=== PATIENT | female | born 1985 | race Hispanic/Latino ===

== ENCOUNTER 2019-01-20 14:20 | Inpatient (IN) | payer SELFPAY ==
[2019-01-20 15:46] LABS: #Eosinphils 0.1 thou/uL (0.0-0.7); #Lymphocytes 1.3 thou/uL (1.20-3.40); #Monocytes 0.4 thou/uL (0.11-0.59); #Neutrophils 5.9 thou/uL (1.40-6.50); %Basophils 0.5 % (0.0-1.0); %Eosinophils 1.9 % (0.0-10.0); %Lymphocytes 16.1 % (21.0-51.0); %Monocytes 5.2 % (0.0-10.0); %Neutrophils 76.3 % (42.0-75.0); Hemoglobin 7.6 g/dL (12.0-16.0); Mean Corpuscular HGB CONC 28.9 g/dL (32.0-36.0); Mean Corpuscular Hemoglobin 17.1 pg (27.0-31.0); Mean Corpuscular Volume 59.2 fL (78.0-98.0); Mean Platelet Volume 5.7 fL (7.4-10.4); Platelet Count 253 thou/uL (130-400); RBC Distribution Width 18.8 % (11.5-14.5); Red Blood Cell (RBC) Count 4.46 mill/uL (4.20-5.40); White Blood Cell (WBC) Count 7.8 thou/uL (4.8-10.8)
[2019-01-20 16:03] LABS: Elliptocytes SLIGHT = 2-5 cells (100X) (0-1/hpf); Hypochromia MODERATE=16-30 cells (100X) (0-5/hpf); MDiff Complete? YES; Microcytosis MODERATE=15-30 cells (100X) (0-5/hpf); Ovalocytes SLIGHT = 2-5 cells (100X) (0-1/hpf); Platelet Morphology Comment Appears Adequate; Polychromasia MODERATE = 3-4 cells (100X) (0-2/hpf); Reflex for Review?? YES; Schistocytes SLIGHT = 2-5 cells (100X) (0-1/hpf); Tear Drops SLIGHT = 2-5 cells (100X) (0-1/hpf)
[2019-01-20 16:04] LABS: ALT (SGPT) 14 U/L (8-55); AST (SGOT) 13 U/L (5-34); Albumin 3.9 g/dL (3.5-5.0); Alkaline Phosphatase 60 U/L (40-110); Anion Gap 13 mmol/L (10-20); BUN (Urea Nitrogen) 8 mg/dL (7.0-18.7); Bilirubin, Total 0.4 mg/dL (0.2-1.2); Calc. Creatinine Clearance 0 mL/min (70-130); Calcium 8.6 mg/dL (7.8-10.44); Carbon Dioxide 23 mmol/L (22-29); Chloride 106 mmol/L (98-107); Estimated GFR-MDRD Greater than 90; Globulin 3.6 g/dL (2.4-3.5); Glucose 99 mg/dL (70-105); Lipase 25 U/L (8-78); Potassium 3.9 mmol/L (3.5-5.1); Protein, Total 7.5 g/dL (6.0-8.3); Sodium 138 mmol/L (136-145)
[2019-01-20] MEDS ORDERED: Ondansetron ODT 4 MG TAB ONE (17:52)
[2019-01-20] MEDS ORDERED: Pantoprazole 40 MG VIAL ONE (19:58)
[2019-01-20] MEDS ORDERED: Lidocaine Viscous Sol 2% 15 ml UD Cup ONE (19:58)
[2019-01-20] MEDS ORDERED: Mag-Al 1200 mg/1200 mg/30 ML UDCUP ONE (19:58)
--- NOTE | 2019-01-20 20:45 | RAD ---
Exam: Chest one view HISTORY:Nausea. Vomiting. Chest pain. Comparison: None. FINDINGS: Cardiac silhouette:Upper normal cardiac silhouette. Aorta: Unremarkable Pulmonary vessels: Normal Costophrenic angles: Clear LUNGS: No masses or consolidation. Pneumothorax: None Osseous abnormalities: None IMPRESSION: No acute cardiopulmonary process.
[2019-01-20 23:16] VITALS: BMI 37.2
[2019-01-21] MEDS ORDERED: Bisacodyl 5 MG TAB PO PRN (00:18)
[2019-01-21] MEDS ORDERED: Bisacodyl 10 MG SUPP PR PRN (00:18)
[2019-01-21] MEDS ORDERED: Acetaminophen 325 MG TAB PO PRN (00:18)
[2019-01-21] MEDS ORDERED: HYDROcodone/Acetaminophen 5/325 mg Tablet PO PRN (00:18)
[2019-01-21] MEDS ORDERED: cloNIDine 0.1 MG TAB PO PRN ×2 (00:19→02:07)
[2019-01-21] MEDS ORDERED: hydrALAZINE 20 MG/ML VIAL SLOW IVP PRN ×2 (00:19→02:07)
[2019-01-21] MEDS ORDERED: Morphine 2 MG/ML SYRINGE SLOW IVP PRN ×2 (00:19→02:07)
[2019-01-21] MEDS ORDERED: Ondansetron PF 4 MG/2 ML Vial IVP PRN ×2 (00:19→02:07)
[2019-01-21] MEDS ORDERED: Promethazine HCl 12.5 MG in Sodium Chloride 0.9% 50 ML IVPB PRN ×2 (00:19→02:07)
--- NOTE | 2019-01-21 00:20 | PDOC.HHP ---
Hospitalist HPI - History of Present Illness Cough, hematemesis History of Present Illness: Patient is a 33 year old female with PMH anemia who presents to ED for evaluation of 1 day of hematemesis. Patient reports the she has had severe upper respiratory symptoms since Thursday including a severe cough. She has runny nose, chills but no recorded fevver, she also has had significant nause and vomiting as well as diarrhea over this time period. Today when vomiting she noticed that her vomit became bloody and continued to stay bloody for all day until she went to hospital. She denies any red or black stool, has mild abdominal pain, is on her period currently. Otherwise, denies chest pain and shortness of breath. She denies history of liver problems, drinks alcohol but very rarely (last drink 2 months ago) and denies drug use or other chronic issues. Hospitalist ROS - Review of Systems Constitutional: reports: chills, sweats, weakness, malaise. denies: fever Eyes: denies: vision change, redness ENT: reports: nose discharge, nose congestion. denies: mouth swelling, throat swelling Respiratory: reports: cough, hemoptysis. denies: shortness of breath Cardiovascular: denies: chest pain, palpitations Gastrointestinal: reports: nausea, vomiting, diarrhea, other (hematemesis). denies: abdominal pain Genitourinary: denies: dysuria, frequency Musculoskeletal: denies: neck pain, shoulder pain, arm pain Skin: denies: rash, lesions Neurological: denies: weakness, numbness, incoordination All other systems reviewed; all pertinent +/- noted in HPI/Subj Hospitalist History - Past Medical History Other Medical History: anemia - Past Surgical History Other Surgical History: C section x 3 - Family History Other Family History: reviewed and noncontributory - Social History Smoking Status: Never smoker Alcohol: reports: Rare (last drink 2 months ago) Drugs: reports: none - Exam General Appearance: NAD, awake alert Eye: PERRL, anicteric sclera ENT: normocephalic atraumatic, moist mucosa Neck: supple, symmetric, no JVD Heart: RRR, no murmur, no gallops, no rubs Respiratory: CTAB, no wheezes, no rales, no ronchi Gastrointestinal: soft Gastrointestinal - other findings: mild diffuse TTP Extremities: no cyanosis, no clubbing, no edema Skin: no lesions, no rashes Neurological: cranial nerve grossly intact, normal sensation to touch, no weakness, no focal deficits Musculoskeletal: normal tone, normal strength Psychiatric: normal affect, normal behavior Hospitalist Results - Labs Result Diagrams: 01/20/19 15:33 01/20/19 15:33 Lab results: WBC 7.8 thou/uL (4.8-10.8) 01/20/19 15:33 Hgb 7.6 g/dL (12.0-16.0) L 01/20/19 15:33 Hct 26.4 % (36.0-47.0) L 01/20/19 15:33 MCV 59.2 fL (78.0-98.0) L 01/20/19 15:33 Plt Count 253 thou/uL (130-400) 01/20/19 15:33 Neutrophils % 76.3 % (42.0-75.0) H 01/20/19 15:33 Sodium 138 mmol/L (136-145) 01/20/19 15:33 Potassium 3.9 mmol/L (3.5-5.1) 01/20/19 15:33 Chloride 106 mmol/L (98-107) 01/20/19 15:33 Carbon Dioxide 23 mmol/L (22-29) 01/20/19 15:33 BUN 8 mg/dL (7.0-18.7) 01/20/19 15:33 Creatinine 0.66 mg/dL (0.6-1.1) 01/20/19 15:33 Glucose 99 mg/dL (70-105) 01/20/19 15:33 Calcium 8.6 mg/dL (7.8-10.44) 01/20/19 15:33 Total Bilirubin 0.4 mg/dL (0.2-1.2) 01/20/19 15:33 AST 13 U/L (5-34) 01/20/19 15:33 ALT 14 U/L (8-55) 01/20/19 15:33 Alkaline Phosphatase 60 U/L (40-110) 01/20/19 15:33 Troponin I Less than 0.010 ng/mL (< 0.028) 01/20/19 15:33 Serum Total Protein 7.5 g/dL (6.0-8.3) 01/20/19 15:33 Albumin 3.9 g/dL (3.5-5.0) 01/20/19 15:33 Lipase 25 U/L (8-78) 01/20/19 15:33 Hospitalist H&P A/P - Plan Plan: Patient is a 33 year old female with PMH anemia who presents to ED for evaluation of 1 day of hematemesis after URI symptoms # hematemesis - after several days of URI symptoms and vomiting/diarrhea, suspect a URI/GI viral illness causing cristian rdz tear, but will request GI eval for second opinion - admit to floor - GI consult - trend CBC, transfuse for hgb < 7 - BID PPI - advised to stop taking aleve/ibuprofin which she has been using a lot this week, and instead to use tylenol att home. - follow up serum test ordered w/ am labs # URI symptoms - will start IV fluids, symptomatic treatments and monitor for improvement, watch for signs of worsening such as fever or hypoxia # anemia - on period and also w/ hematemesis and some reported chronic anemia, presume due to iron deficiency, can supplement with Po iron once acute bleeding resolved
[2019-01-21] MEDS ORDERED: Benzonatate 100 MG CAP PO PRN (02:08)
[2019-01-21] MEDS ORDERED: HYDROcodone/Chlorphen Polis 5 ML UDCUP PO PRN (02:08)
[2019-01-21] MEDS: Sodium Chloride 0.9% 1,000 ML IV SCH ×3 (02:54→23:31)
[2019-01-21 06:08] LABS: BHCG - Serum Negative (NEGATIVE); Pregs Control Background? CLEAR/WHITE (CLR/WHITE); Pregs Control Bar Appear? YES (CONTROL BAR)
[2019-01-21 06:23] LABS: Anion Gap 6 mmol/L (10-20); BUN (Urea Nitrogen) 9 mg/dL (7.0-18.7); Calc. Creatinine Clearance 144 mL/min (70-130); Calcium 8.2 mg/dL (7.8-10.44); Carbon Dioxide 26 mmol/L (22-29); Chloride 108 mmol/L (98-107); Estimated GFR-MDRD Greater than 90; Glucose 99 mg/dL (70-105); Potassium 3.3 mmol/L (3.5-5.1); Sodium 137 mmol/L (136-145)
[2019-01-21 06:36] LABS: #Eosinphils 0.2 thou/uL (0.0-0.7); #Lymphocytes 1.9 thou/uL (1.20-3.40); #Monocytes 0.5 thou/uL (0.11-0.59); #Neutrophils 3.9 thou/uL (1.40-6.50); %Basophils 0.6 % (0.0-1.0); %Eosinophils 3.2 % (0.0-10.0); %Monocytes 7.8 % (0.0-10.0); %Neutrophils 59.4 % (42.0-75.0); Anisocytosis SLIGHT = 6-15 cells (100X) (0-5/hpf); Hemoglobin 6.7 g/dL (12.0-16.0); Hypochromia MODERATE=16-30 cells (100X) (0-5/hpf); MDiff Complete? YES; Mean Corpuscular HGB CONC 29.4 g/dL (32.0-36.0); Mean Corpuscular Hemoglobin 17.3 pg (27.0-31.0); Mean Corpuscular Volume 58.8 fL (78.0-98.0); Mean Platelet Volume 5.9 fL (7.4-10.4); Microcytosis MODERATE=15-30 cells (100X) (0-5/hpf); Platelet Count 222 thou/uL (130-400); RBC Distribution Width 18.5 % (11.5-14.5); Red Blood Cell (RBC) Count 3.88 mill/uL (4.20-5.40); White Blood Cell (WBC) Count 6.6 thou/uL (4.8-10.8)
[2019-01-21] MEDS ORDERED: Sodium Phosphate 15 MMOL in Sodium Chloride 0.9% 250 ML 250 ML IVPB SCH (07:00)
--- NOTE | 2019-01-21 11:25 | PRG ---
DATE OF SERVICE: 01/21/2019 SUBJECTIVE: The patient is seen and examined at the bedside. She seems to be doing better. She still has quite a bit of cough, but no more vomiting. OBJECTIVE: VITAL SIGNS: Blood pressure is 95/60, pulse is 75, temperature 98.5, respiratory rate 16, O2 saturation is 99% on room air. HEENT: Head is atraumatic and normocephalic. Sclerae are nonicteric. Conjunctivae pale. Oral mucosa is palish. NECK: Supple. LUNGS: Clear. HEART: S1 and S2 normal. ABDOMEN: Soft and tender in mid epigastric area. No guarding. No masses. EXTREMITIES: No clubbing, cyanosis, or edema. NEUROLOGIC: Intact. LABORATORY DATA: White count of 6.6, hemoglobin 6.7, hematocrit 22.8, platelet count 222,000. Sodium of 137, potassium 3.3, chloride 108, CO2 of 26, BUN 9, creatinine 0.67, glucose 99, calcium 8.2. Serum test negative. IMPRESSION: Severe anemia, probably multifactorial in nature, secondary to hypermenorrhea. The patient has bleeding for 2 weeks every month for quite some time. Also, she started having some hematemesis after she coughs. PLAN: Transfusion with 1 unit of packed red blood cells. Discontinue sodium phosphate and get TAPE CUTTER consult for her hypermenorrhea. We are going to get transvaginal ultrasound too, and we will continue PPI, and GI consult is pending. Job ID: [id number]
--- NOTE | 2019-01-21 11:28 | CON ---
DATE OF CONSULTATION: 01/21/2019 CHIEF COMPLAINT: Vomited blood. HISTORY OF PRESENT ILLNESS: Ms. Chun is a 33-year-old woman, who started with upper respiratory symptoms with a cough about a week ago. On Thursday, 4 days ago, she started in with nausea and vomiting. She has vomited once or twice a day for the last few days. Yesterday, she vomited red blood, mixed with yellow bilious vomitus. She came onto the emergency room for further care and she was found to have severe microcytic anemia. She has had no abdominal pain associated with this. No diarrhea. She has normal soft brown stools once daily. She does have heavy menstrual periods, which go on for 10 days at a time and she soaks 5 or 6 pads in a day. She has not been taking any iron supplementation. PAST MEDICAL HISTORY: Anemia. PAST SURGICAL HISTORY: x3. FAMILY HISTORY: Negative for GI malignancy. SOCIAL HISTORY: No tobacco or drugs. She drinks Adenike around once every 2 months. ALLERGIES: NO KNOWN DRUG ALLERGIES. MEDICATIONS: Prior to admission, none. She did take ibuprofen 2 or 3 tablets every 4 hours for the last 3 or 4 days prior to admission, but has not been taking NSAIDs chronically before that. REVIEW OF SYSTEMS: Negative x10 systems reviewed except as stated in the history of present illness. PHYSICAL EXAMINATION: VITAL SIGNS: Temperature 98.5, pulse 75, blood pressure 95/60. GENERAL: She is in no acute distress. Alert and oriented x3. HEENT: Eyes have no scleral icterus. Oropharynx is clear without lesions. No cervical or supraclavicular lymphadenopathy. LUNGS: Clear to auscultation bilaterally. HEART: Regular rate and rhythm without murmur. ABDOMEN: Soft, nontender, and nondistended. Bowel sounds are present. EXTREMITIES: No lower extremity edema. NEUROLOGIC: Cranial nerves are grossly intact. LABORATORY DATA: Creatinine is 0.66. Bilirubin 0.4, AST 13, ALT 14, alkaline phosphatase 60, albumin 3.9, and lipase 25. test is negative. White blood cell count 6.6, hemoglobin is 7.6 on presentation yesterday and 6.7 this morning, MCV 58.8, and platelets 222. IMPRESSION: 1. Hematemesis. This is most consistent with a Alejandrina-Pompa tear. 2. Severe microcytic anemia. This is most likely secondary to her heavy menstrual periods. 3. Upper respiratory infection followed by nausea and vomiting, which is likely a viral illness. This seems to be generally improving. RECOMMENDATIONS: 1. Proton pump inhibitor. 2. We will plan to proceed with upper endoscopy in light of the hematemesis with severe anemia; however, again I think the anemia is secondary to menstrual blood loss. 3. Iron supplementation. 4. She should follow up with Gynecology regarding the heavy menstrual periods. Job ID: [id number]
--- NOTE | 2019-01-21 12:33 | ULT ---
PELVIC ULTRASOUND: HISTORY: Heavy bleeding. TECHNIQUE: Real-time imaging of the pelvis was obtained both transabdominally as well as with an endovaginal pro be. The endovaginal probe exam was limited due to the patient's pain during the procedure. FINDINGS: The uterus measures 4.4 x 6.1 x 11.6 cm in size. There appears to be fluid within the endometrial cav ity, in the fundus region. There is fullness in the lower uterine segment on transabdominal images an d a lower uterine segment mass, measuring 3.5 cm in size, is noted. This is apparently near the level of the cervix. It is somewhat difficult to assess. The right and left adnexa appear unremarkable. On Doppler evaluation with spectral analysis, normal flow is shown to the adnexal regions. IMPRESSION: 1. Lower uterine segment mass, measuring approximately 3.5 x 4 cm in size. This is most likely a lowe r uterine segment fibroid. I cannot exclude this as an endometrial mass although it is probably just pressing on the endometrium. The other possibility is some type of cervical mass. On imaging basis, M RI may be helpful in further assessment. 2. Incidental note is made of a small nabothian cyst also in this region. POS: TPC
[2019-01-21] MEDS ORDERED: Midazolam HCl 2 mg/2 ml Vial ONE (12:45)
[2019-01-21] MEDS: Ferrous Gluconate 324 MG TAB PO SCH (16:41)
--- NOTE | 2019-01-21 19:41 | OP ---
DATE OF PROCEDURE: 01/21/2019 PROCEDURE: Esophagogastroduodenoscopy with biopsy. PREOPERATIVE DIAGNOSIS: Hematemesis and severe anemia. DESCRIPTION OF PROCEDURE: Informed consent was obtained from the patient. She was sedated with total intravenous anesthesia. A bite block was placed and endoscope was advanced easily to the second portion of the duodenum and retroflexion was performed in the stomach. The patient obstructs within the endoscope in her oropharynx and likely has some underlying sleep apnea. The esophagus was normal. The GE junction was normal. The stomach was normal on retroflexed views. There were multiple shallow ulcerations in the antrum measuring 5 to 10 mm. None of these had stigmata of recent bleeding. The pylorus and first and second portions of the duodenum were normal. Biopsies were obtained from the duodenum to rule out celiac disease. Biopsies were obtained from the antrum to rule out Helicobacter pylori. Air was suctioned from the stomach. The procedure was completed. IMPRESSION: 1. Multiple shallow antrum ulcers, biopsied to rule out Helicobacter pylori. 2. Otherwise normal EGD. Duodenal biopsies were taken to rule out celiac disease. 3. The patient does obstruct her airway with placement of the endoscope and the oropharynx. I would suspect she is likely high risk for obstructive sleep apnea. 4. I still think her anemia is primarily secondary to menstrual blood loss. There was no stigmata of recent bleeding associated with the gastric ulcers. The hematemesis episode is more consistent with a Alejandrina-Pompa tear that could have healed. However, it is possible that she did have some oozing previously from these shallow antral ulcers. RECOMMENDATIONS: 1. Proton pump inhibitor daily. 2. Await histopathology. If there is inadequate tissue from the gastric biopsies to rule out Helicobacter pylori, then, a stool antigen can be checked. 3. Iron supplementation. 4. If patient requires endoscopic procedures in the future, then I would perform these in the hospital setting in light of the potential for obstructive sleep apnea. 5. Follow up with Gynecology for menorrhagia. 6. I will sign off for now. Please call if GI can help. 7. Avoid NSAIDs. Job ID: [id number]
[2019-01-21] MEDS: guaiFENesin ER 600 MG TAB PO SCH (20:22)
--- NOTE | 2019-01-21 21:58 | CON ---
DATE OF CONSULTATION: 01/21/2019 REQUESTING PHYSICIAN: Sachi hospitalist. REASON FOR CONSULTATION: History of heavy vaginal bleeding, anemia. HISTORY OF PRESENT ILLNESS: Ms. Chun is a 33-year-old G3, P3, who presents complaining of vomiting blood prior to her admission. Of note is the fact that over the last year, she has had bleeding every month, lasting almost 2 weeks. She states that her last Pap smear was at [facility] approximately 2 years ago and that was reportedly normal. PAST OBSTETRICAL HISTORY: Includes 3 previous sections. PAST MEDICAL HISTORY: None. PAST SURGICAL HISTORY: Includes 3 previous sections and a tubal ligation. CURRENT MEDICATIONS: None. ALLERGIES: NO KNOWN ALLERGIES. SOCIAL HISTORY: She drinks occasionally. She does not smoke or use drugs. FAMILY HISTORY: Unremarkable for pelvic malignancies. REVIEW OF SYSTEMS: Denies nausea, vomiting, fever, or chills. PHYSICAL EXAMINATION: VITAL SIGNS: Most recent vital signs show blood pressure 110/73 with pulse of 79, temperature 98.5, and 100% O2 saturation on room air. GENERAL: She is pleasant and in no acute distress. ABDOMEN: Soft and nontender. : On pelvic examination, there is no blood in the vault. The speculum exam is very difficult as the patient has problems tolerating this. It does appear at the apex of the vagina that she has a fibroid that is seen through the cervix. The edges of the cervix appear normal, but examination is limited. On bimanual examination, there appears to be a vaginal septum and duplicated tract on the other side. Pt. has difficulty tolerating both the speculum and the bimanual exam and findings are limited. LABORATORY DATA: Hemoglobin on admission 7.6, this is repeated today. Her white count 6.6, hemoglobin 6.7, hematocrit 22.8, platelet count 222,000. Pelvic ultrasound returns showing a lower segment mass 3.5 x 4 cm in size, also consistent with a lower uterine segment fibroid. A small nabothian cyst is seen. Her uterus measures 11 cm in axial length. ASSESSMENT: 1. Menorrhagia with secondary anemia. 2. Suspected cervical fibroid, not currently bleeding. 3. 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 PLAN: At this time, I agree with red blood cell transfusion. Once she has an acceptable hemoglobin, I would recommend that she be evaluated as an outpatient with a Pap smear with a more complete exam and then potentially proceeding with either removal of the fibroid or an abdominal hysterectomy. Job ID: [id number] MARILEE
[2019-01-22] MEDS: Sodium Chloride 0.9% 1,000 ML IV SCH ×2 (04:00→15:49)
[2019-01-22 07:24] LABS: Anion Gap 11 mmol/L (10-20); BUN (Urea Nitrogen) 4 mg/dL (7.0-18.7); Calc. Creatinine Clearance 154 mL/min (70-130); Carbon Dioxide 20 mmol/L (22-29); Chloride 112 mmol/L (98-107); Estimated GFR-MDRD Greater than 90; Glucose 91 mg/dL (70-105); Sodium 139 mmol/L (136-145)
[2019-01-22 08:25] LABS: #Eosinphils 0.2 thou/uL (0.0-0.7); #Lymphocytes 1.9 thou/uL (1.20-3.40); #Monocytes 0.4 thou/uL (0.11-0.59); #Neutrophils 3.4 thou/uL (1.40-6.50); %Basophils 0.5 % (0.0-1.0); %Eosinophils 3.1 % (0.0-10.0); %Lymphocytes 32.3 % (21.0-51.0); %Monocytes 5.9 % (0.0-10.0); %Neutrophils 58.2 % (42.0-75.0); Anisocytosis SLIGHT = 6-15 cells (100X) (0-5/hpf); Hemoglobin 8.1 g/dL (12.0-16.0); Hypochromia MODERATE=16-30 cells (100X) (0-5/hpf); MDiff Complete? YES; Mean Corpuscular HGB CONC 30.8 g/dL (32.0-36.0); Mean Corpuscular Hemoglobin 19.6 pg (27.0-31.0); Mean Corpuscular Volume 63.4 fL (78.0-98.0); Mean Platelet Volume 5.8 fL (7.4-10.4); Microcytosis MODERATE=15-30 cells (100X) (0-5/hpf); Ovalocytes SLIGHT = 2-5 cells (100X) (0-1/hpf); Platelet Count 231 thou/uL (130-400); Poikilocytosis SLIGHT = 6-15 cells (100X) (0-5/hpf); RBC Distribution Width 25.1 % (11.5-14.5); Red Blood Cell (RBC) Count 4.15 mill/uL (4.20-5.40); White Blood Cell (WBC) Count 5.9 thou/uL (4.8-10.8)
[2019-01-22] MEDS: Ferrous Gluconate 324 MG TAB PO SCH ×3 (08:27→16:35)
[2019-01-22] MEDS: guaiFENesin ER 600 MG TAB PO SCH ×2 (08:27→20:08)
[2019-01-22] MEDS ORDERED: Sodium Chloride 0.9% 250 ML IV SCH (12:00)
--- NOTE | 2019-01-22 14:45 | PRG ---
DATE OF SERVICE: 01/22/2019 SUBJECTIVE: The patient is seen and examined at the bedside. She is doing significantly better. Her cough has improved. She had 1 unit of blood transfused. Her hemoglobin is up to 8.1. She was seen by Dr. Shields for REGISTERED DIET TECHNICIAN evaluation and she had her pelvic ultrasound done. OBJECTIVE: VITAL SIGNS: Blood pressure is 90/60, pulse is 68, temperature is 98.5, respirations 16, O2 saturation is 98% on room air. HEENT: Her head is atraumatic and normocephalic. Eyes are PERRLA. Sclerae are nonicteric. Conjunctivae are palish. Oral mucosa is moist. NECK: Supple. LUNGS: Clear. HEART: S1 and S2, normal. ABDOMEN: Soft, nontender. Bowel sounds are present. No organomegaly. EXTREMITIES: No clubbing, cyanosis, or edema. NEUROLOGIC: She is alert and oriented x4. There is no any motor or sensory deficit. Cranial nerves are intact. LABORATORY DATA: Showed white count of 5.9, hemoglobin 8.1, hematocrit 26.3, platelet count is 231,000. Chemistry showed sodium of 139, potassium 4.0, chloride 112, CO2 of 20, BUN 4, creatinine 0.63, glucose 91, calcium 8.0. Ultrasound, transvaginal of the pelvis showed; 1. Lower uterine segment mass measuring approximately 3.5 x 4 cm in size, most likely it is the lower uterine segment fibroid, but MRI was recommended. 2. Incidental note of small nabothian cyst also in this region. IMPRESSION: 1. Severe anemia, probably multifactorial. She was found to have some gastric ulcers, which were not bleeding on the EGD, but also she has hypermenorrhea with periods lasting up to 2 weeks every month for quite some time. 2. Hypermenorrhea. She had ultrasound of the pelvis done, which showed possible fibroids, recommendation by radiologist was to do MRI for further evaluation of the mass, and she is going to have MRI done today. She was seen by Dr. Shields for REGISTERED DIET TECHNICIAN evaluation. He recommends her to follow up for Pap smear and further evaluation and possible hysterectomy if this is a fibroid in her uterus. 3. Multiple gastric ulcers in the antrum, biopsied to rule out Helicobacter pylori. Otherwise normal EGD. Also, duodenal biopsies were taken to rule out celiac disease. Of the note, there was finding that during the endoscopy, her airways were getting obstructed with placement and followup for any EGDs recommended in the hospital since she might have obstructive sleep apnea based on this finding. We are going to keep her on proton pump inhibitor, Protonix 40 mg once a day for those ulcers, and she should be able to go home when the diagnostic workup is completed. Job ID: [id number]
--- NOTE | 2019-01-22 15:46 | MRI ---
EXAM: MRI of the pelvis without and with contrast HISTORY: Uterine didelphys COMPARISON: Pelvic ultrasound 01/21/2019 TECHNIQUE: Multiplanar multisequence MR images were obtained of the pelvis without and with IV contra st. FINDINGS: Cervix: Nabothian cysts are seen in the cervix. There is an intravaginal mass measuring 4.1 cm in siz e. This appears eccentric in relation to the internal os of the cervix. It has signal characteristics suggesting it is a fibroid. Uterus: The uterine fundus is convex. The patient has a septate uterus with a septation extending yudy n to the lower uterine segment. A 2.4 cm mass in the left aspect of the uterus likely represents a fibroid. There is a 2.8 cm cyst along the anterior aspect of the uterus. Junctional zone: Normal in thickness A small amount of free fluid is seen in the pelvis. Right ovary: Normal in appearance without visualized mass Left ovary: Normal in appearance without visualized mass Pelvic lymph nodes: No pelvic adenopathy Osseous structures: No marrow signal abnormality IMPRESSION: 1. Uterine fibroids. There is an intravaginal mass which may represent an exophytic fibroid emanating from the lower uterine segment into the vagina. 2. Septate uterus 3. Nabothian cysts 4. Cyst seen along the anterior uterine wall appears separate from the follicles in the ovaries.
--- NOTE | 2019-01-22 15:48 | MRI ---
EXAM: MRI of the abdomen without and with contrast COMPARISON: None HISTORY: Uterine anomaly TECHNIQUE: Multiplanar multi sequence MR images were taken of the abdomen without and with IV contras t. [An MRCP was performed.] FINDINGS: Liver: No focal liver lesions or intrahepatic ductal dilatation. Normal signal without dropout on out of phase images. No abnormal enhancement. Gallbladder: No filling defects or gallbladder wall thickening. Common bile duct: Normal caliber without filling defects Adrenal glands: Unremarkable. Kidneys: No hydronephrosis or focal renal lesions. No abnormal areas of enhancement. The kidneys are normal in appearance. Spleen: Unremarkable. Pancreas: Unremarkable. No abnormal enhancement. Retroperitoneum: No enlarged lymph nodes Bones: No marrow signal abnormality. IMPRESSION: No significant intra-abdominal abnormality.
[2019-01-23] MEDS: Sodium Chloride 0.9% 1,000 ML IV SCH ×3 (03:17→21:56)
[2019-01-23 06:00] LABS: Anion Gap 10 mmol/L (10-20); BUN (Urea Nitrogen) Less than 4 mg/dL (7.0-18.7); Calc. Creatinine Clearance 140 mL/min (70-130); Calcium 8.3 mg/dL (7.8-10.44); Carbon Dioxide 23 mmol/L (22-29); Chloride 110 mmol/L (98-107); Estimated GFR-MDRD Greater than 90; Glucose 84 mg/dL (70-105); Potassium 3.2 mmol/L (3.5-5.1); Sodium 140 mmol/L (136-145)
[2019-01-23 06:31] LABS: #Basophils 0.1 thou/uL (0.0-0.2); #Eosinphils 0.2 thou/uL (0.0-0.7); #Lymphocytes 2.4 thou/uL (1.20-3.40); #Monocytes 0.4 thou/uL (0.11-0.59); #Neutrophils 3.9 thou/uL (1.40-6.50); %Basophils 0.9 % (0.0-1.0); %Eosinophils 2.9 % (0.0-10.0); %Lymphocytes 33.8 % (21.0-51.0); %Monocytes 6.4 % (0.0-10.0); Anisocytosis SLIGHT = 6-15 cells (100X) (0-5/hpf); Hemoglobin 8.6 g/dL (12.0-16.0); Hypochromia MODERATE=16-30 cells (100X) (0-5/hpf); MDiff Complete? YES; Mean Corpuscular HGB CONC 29.8 g/dL (32.0-36.0); Mean Corpuscular Hemoglobin 19.2 pg (27.0-31.0); Mean Corpuscular Volume 64.3 fL (78.0-98.0); Mean Platelet Volume 5.9 fL (7.4-10.4); Microcytosis MODERATE=15-30 cells (100X) (0-5/hpf); Platelet Count 239 thou/uL (130-400); Platelet Morphology Comment Appears Adequate; RBC Distribution Width 24.9 % (11.5-14.5); Red Blood Cell (RBC) Count 4.48 mill/uL (4.20-5.40)
[2019-01-23] MEDS ORDERED: Potassium Chloride 20 MEQ TAB PO SCH (07:15)
--- NOTE | 2019-01-23 07:24 | PDOC.FM ---
- Subjective Subjective: I saw this patient with the Laborist. This note is for Laborist progress note. Pt reports doing well this morning. Reports bleeding almost stopped this am. Reports a few spots. Denies any acute events overnight. Denies any lightheadness , dizziness, headaches, vision changes. Denies any chest pain or SOB. Denies any n/v/d/c. No other concerns at this time. - Objective MAR Reviewed: Yes Vital Signs & Weight: Vital Signs (12 hours) Temp Pulse Resp BP Pulse Ox 01/22/19 20:04 98.7 F 72 18 97/68 99 Weight Weight 78.018 kg I&O: 01/22/19 01/23/19 01/24/19 06:59 06:59 06:59 Intake Total 4050 4900 Balance 4050 4900 Result Diagrams: 01/23/19 05:13 01/23/19 05:13 Radiology Reviewed by me: Yes Radiology: 01/22 Abdomen/Pelvis MRI: No acute abdomen pathology. Uterine fibroids. there is an intravaginal mass which may representan exophytic fibroid emanating from the lower uterine segment into the vagina. Septate uterus. Nabothian Cysts. Cyst seen along ant uterine wall appears seperate from follicles in the ovaries Phys Exam - Physical Examination Constitutional: NAD HEENT: PERRLA, moist MMs, sclera anicteric, oral pharynx no lesions Neck: no nodes, supple, full ROM Respiratory: no wheezing, no rales, no rhonchi Cardiovascular: RRR, no significant murmur, no rub Gastrointestinal: soft, non-tender, no distention, positive bowel sounds Musculoskeletal: no edema, pulses present Neurological: non-focal, normal sensation, moves all 4 limbs Lymphatic: no nodes Psychiatric: normal affect, A&O x 3 Skin: no rash, normal turgor, cap refill <2 seconds Dx/Plan (1) Symptomatic anemia Code(s): D64.9 - ANEMIA, UNSPECIFIED Status: Acute (2) Abnormal uterine bleeding (AUB) Code(s): N93.9 - ABNORMAL UTERINE AND VAGINAL BLEEDING, UNSPECIFIED Status: Acute (3) Uterine fibroid Code(s): D25.9 - LEIOMYOMA OF UTERUS, UNSPECIFIED Status: Acute (4) Septate uterus Code(s): Q51.20 - OTHER DOUBLING OF UTERUS, UNSPECIFIED Status: Acute - Plan Plan: Symptomatic Anemia -S/p transfusion 1u PRBC. -Hgb 8.1->8.6 this am. VSS. Pt asx at this time. -Vaginal bleeding almost stopped at this time. AUB/Uterine Fibroid -Pt has large fibroid extending into cervix. Likely source of bleed. -Plan will be for surgery tmrw for vaginal Myomectomy to remove as bleeding likely won't resolve without removal Septate Uterus -Abdomen evaluated for any underlying related renal abnormalities. No other abnormalities noted. This note was documented for Loan Processing Supervisor consult progress note with Laborist group. Dispo: At this time will continue to monitor patient. Will plan on Vaginal Myomectomy under General for tommorrow to remove Uterine fibroid which is likely source of bleeding. NPO at midnight.
[2019-01-23] MEDS: guaiFENesin ER 600 MG TAB PO SCH ×2 (08:09→21:46)
[2019-01-23] MEDS: Ferrous Gluconate 324 MG TAB PO SCH ×3 (08:13→17:34)
--- NOTE | 2019-01-23 11:20 | PRG ---
DATE OF SERVICE: 01/23/2019 SUBJECTIVE: The patient is seen and examined at the bedside. She is scheduled to have hysterectomy tomorrow by [facility]. OBJECTIVE: VITAL SIGNS: Blood pressure is 111/70, pulse is 59, respiratory rate is 17, O2 saturation is 97% on room air, and temperature is 98.4. HEENT: Her head is normocephalic. Eyes are PERRLA. Sclerae are nonicteric. Oral mucosa is moist. LUNGS: Clear. HEART: S1 and S2, normal. ABDOMEN: Soft, obese, nontender. EXTREMITIES: No clubbing, cyanosis, or edema. NEUROLOGICAL: She is alert and oriented x4. There are no any motor or sensory deficits. LABORATORY DATA: Labs showed white count of 7.0, hemoglobin of 8.6, hematocrit 28.8, and platelet count is 239,000. Chemistry showed a sodium of 140, potassium 3.2, chloride 110, CO2 of 23, BUN less than 4, and creatinine 0.69. Her calcium is 8.3, and glucose is 84. MRI of the pelvis showed 1. Uterine fibroids. 2. Septate uterus. 3. Nabothian cysts. 4. Cyst seen along the anterior uterine wall, which appears separate from the follicles in the ovaries. MRI of the abdomen did not show any abnormalities. IMPRESSION: 1. Severe anemia, probably multifactorial with history of hypermenorrhea lasting up to two weeks. It looks like secondary to fibroid of the uterus. The patient is scheduled for a transvaginal myomectomy by [facility] tomorrow morning, and her EGD showed some stomach ulcers, but there was no any stigmata of bleeding. She is on Protonix at this point. Her anemia is improving daily with hemoglobin of 8.6 today. 2. Hypermenorrhea, as mentioned above, for myomectomy tomorrow secondary to fibroid of the uterus. Job ID: [id number]
--- NOTE | 2019-01-24 06:17 | PDOC.EVN ---
Event Note - Event Note Event Note: Discussed procedure with pt. last PM. VSS AF No significant bleeding. Plan: For EUA and vaginal myomectomy today. Consent on chart.
[2019-01-24] MEDS: Ferrous Gluconate 324 MG TAB PO SCH ×2 (07:26→13:27)
[2019-01-24] MEDS: guaiFENesin ER 600 MG TAB PO SCH (07:27)
[2019-01-24] MEDS ORDERED: Fentanyl 100 MCG/2 ML VIAL ONE (10:05)
[2019-01-24] MEDS ORDERED: PROPOFOL 200 MG/20 ML VIAL ONE (10:13)
[2019-01-24] MEDS ORDERED: Lidocaine 1% PF 5 ML VIAL ONE (10:13)
[2019-01-24] MEDS ORDERED: Rocuronium Bromide 10 MG/ML (10ML VIAL) ONE (10:13)
[2019-01-24] MEDS ORDERED: Ondansetron PF 4 MG/2 ML Vial ONE (10:13)
[2019-01-24] MEDS ORDERED: Dexamethasone 20 MG/5 ML VIAL ONE (10:13)
[2019-01-24] MEDS: Sodium Chloride 0.9% 1,000 ML IV SCH (11:32)
[2019-01-24] MEDS ORDERED: Ondansetron HCl/PF 4 MG/2 ML Vial IVP PRN (12:18)
[2019-01-24] MEDS ORDERED: Promethazine HCl 25 MG/ML VIAL SLOW IVP PRN (12:18)
[2019-01-24] MEDS ORDERED: Promethazine HCl 25 MG/ML VIAL IM PRN (12:18)
[2019-01-24 13:07] VITALS: TEMP 98.7
[2019-01-24 16:47] VITALS: BP 104/67
--- NOTE | 2019-01-24 22:10 | OP ---
DATE OF PROCEDURE: 01/24/2019 PREOPERATIVE DIAGNOSES: 1. Pedunculated fibroid. 2. Vaginal bleeding. 3. Anemia. POSTOPERATIVE DIAGNOSES: 1. Pedunculated fibroid. 2. Vaginal bleeding. 3. Anemia. 4. Longitudinal vaginal septum. PROCEDURES PERFORMED: Exam under anesthesia with excision of cervical fibroid 4.5 cm. ANESTHESIA: General. COMPLICATIONS: None. COUNTS: Correct. CONDITION: Stable to recovery room. SPECIMENS: Excised fibroid to Pathology. DESCRIPTION OF PROCEDURE: Ms. Ousmane Chun was taken to the operating room after obtaining written informed consent and discussing the procedure's goals. The patient expressed understanding and desired to proceed. She was placed under general anesthesia without difficulty and placed in dorsal lithotomy position in Solomon stirrups. She was prepared and draped in normal sterile fashion. Attention was placed vaginally with the aid of right angle Rocco retractors and [place] to identify the upper regions of the vagina and cervix, where a 4.5 cm pedunculated fibroid was clearly seen. On digital exam, the patient was noted to have a long stalk on the backside of this fibroid that seemed to insert into the upper regions of the cervix. It did not feel as if it was coming from the uterine cavity itself. Of note, on initial physical exam, the patient was noted to have a longitudinal septum down the length of midline of her vagina with open at the very top of the level of the cervix down to the introitus. The septum is thick and very vascular, appearing like normal vaginal tissue. The septum was fairly soft and flexible and was able to be retracted out of the surgical field fairly easily with a right angle retractor. The fibroid was grasped with a double tooth tenaculum and endo-loop was placed at the stalk behind the fibroid and cinched down. Given the size of the fibroid and the density of the stalk, additional sutures were placed laterally on the fibroid for greater manipulation and the center of the fibroid was cored out greatly reducing the total volume. With this procedure as it progressed, the stalk of this fibroid became visible, at which time, an 0 Vicryl was used on a UR6 to place a suture ligature for greater control and hemostasis. With the Endoloop and the suture ligature in place, the remaining portions of the fibroid were then transected from the stalk using fulguration and cautery. The remaining stock was than fulgurated for better hemostasis and also for attempt to destroy as much of the remaining stock as possible for healing purposes. Once this was completed, the patient was noted to have no bleeding from the sites and the procedure was completed. Of note, during the case, the patient was in and out cathed toward the beginning and there is about 200 to 300 mL of clear urine that was removed. With the procedure completed, the patient was taken out of lithotomy position, awoken from anesthesia and taken to recovery room in stable condition. Job ID: [id number]
--- NOTE | 2019-01-25 02:33 | DIS ---
DATE OF ADMISSION: 01/20/2019 DATE OF DISCHARGE: 01/24/2019 DISCHARGE DIAGNOSES: 1. Severe anemia, most likely iron deficiency anemia. 2. Hematemesis. 3. Multiple shallow antrum ulcers. 4. Uterine fibroid. HOSPITAL COURSE: The patient is a 33-year-old female, who initially presented to the hospital with complaints of cough and hematemesis. She denies any dark stools or red blood through her rectum area. The patient was found to have significant amount of anemia. At this time given her hematemesis, GI was consulted and patient was put on a PPI. She also had some URI like symptoms. However, there were no concerns for bacterial cause of her URI symptoms and she was treated symptomatically. The patient has been having menorrhagia that has been going on for quite some time. She did have a pelvic ultrasound that indicated lower uterine segment mass measuring 3.5 to 4 cm, most likely in the lower uterine segment fibroid. At this time, [facility] was consulted on this patient. She underwent a vaginal myomectomy today. The fibroid was then sent for surgical pathology. She also underwent an upper endoscopy by GI, which indicated multiple shallow antrum ulcers, biopsied to rule out H pylori. H pylori was ruled out. During her EGD, she was known to have very significant amount of obstructive airway disease with placement of the endoscopy. I recommended that in the future if she does have any scopes, she would have to have it as an inpatient and I had discussed this with the patient and the family. The patient denies any snoring or feeling tired in the mornings. However, she most likely has obstructive sleep apnea. I did recommend her that she needs to follow up with [facility] and maybe get a sleep study as an outpatient. However, the patient currently does not have insurance and this would be a financial issue. HOME MEDICATIONS: Today are; 1. Iron 324 t.i.d. 2. Pantoprazole 40 mg twice a day. 3. Senokot 8.6 p.o. at bedtime. 4. I have asked her to take Tylenol p.r.n. and avoid NSAIDs including ibuprofen, Advil, Excedrin for her pain. She understands. PHYSICAL EXAMINATION: VITAL SIGNS: Temperature 98.7, 67, 14, 98% on room air, 110/74. GENERAL: She is awake, alert, and oriented x3. Does not appear in distress. CV: S1, S2 present. No murmurs, rubs, or gallops. ABDOMEN: Soft, nontender. Bowel sounds are present x2. Job ID: [id number]
== END 2019-01-24 16:40 | disposition home or self-care (01) | DRG 742 ==
LOC: ERS 14:20 → T4-A 22:57 → OBSVTOIN 22:57
PROVIDERS: ADMIT Internal Medicine; ATTEND Internal Medicine
PROC: 0DB78ZX Excision of Stomach, Pylorus, Via Natural or Artificial Opening Endoscopic, Diagnostic (ICD-10-PCS; 2019-01-21)
PROC: 0DB98ZX Excision of Duodenum, Via Natural or Artificial Opening Endoscopic, Diagnostic (ICD-10-PCS; 2019-01-21)
PROC: 0UB97ZZ Excision of Uterus, Via Natural or Artificial Opening (ICD-10-PCS; principal; 2019-01-24)
PROC: 30233N1 Transfusion of Nonautologous Red Blood Cells into Peripheral Vein, Percutaneous Approach (ICD-10-PCS; 2019-01-24)
DX: D25.9 Leiomyoma of uterus, unspecified (principal); K92.0 Hematemesis; D50.9 Iron deficiency anemia, unspecified; N92.0 Excessive and frequent menstruation with regular cycle; N91.2 Amenorrhea, unspecified; K25.9 Gastric ulcer, unspecified as acute or chronic, without hemorrhage or perforation; Q51.20 Other doubling of uterus, unspecified; Q52.129 Other and unspecified longitudinal vaginal septum; N88.8 Other specified noninflammatory disorders of cervix uteri; J06.9 Acute upper respiratory infection, unspecified
CPT/HCPCS: 36415; 36430; 71045; 72197; 74183; 76856; 80048; 80053; 83690; 84484; 84703; 85025; 85060; 86850; 86900; 86901; 87804; 88305; 88312; 93005; 96374; C9113; J1100; J2001; J2250; J2405; J2704; J3010; J7050; P9016; Q0162

== ENCOUNTER 2019-03-23 16:15 | Inpatient (IN) | payer OTHER ==
[2019-04-08 16:42] VITALS: BMI 38.7
[2019-04-08 16:45] LABS: Hemoglobin 10.7 g/dL (12.0-16.0); Mean Corpuscular HGB CONC 33.1 g/dL (32.0-36.0); Mean Corpuscular Hemoglobin 25.8 pg (27.0-31.0); Mean Platelet Volume 11.2 fL (7.4-10.4); Platelet Count 272 thou/uL (130-400); RBC Distribution Width 17.6 % (11.5-14.5); Red Blood Cell (RBC) Count 4.13 mill/uL (4.20-5.40); White Blood Cell (WBC) Count 7.7 thou/uL (4.8-10.8)
[2019-04-08 16:53] LABS: BHCG - Serum Negative (NEGATIVE); Pregs Control Background? CLEAR/WHITE (CLR/WHITE); Pregs Control Bar Appear? YES (CONTROL BAR)
[2019-04-08 16:56] LABS: Anion Gap 12 mmol/L (10-20); BUN (Urea Nitrogen) 8 mg/dL (7.0-18.7); Calc. Creatinine Clearance 0 mL/min (70-130); Calcium 8.9 mg/dL (7.8-10.44); Carbon Dioxide 24 mmol/L (22-29); Chloride 107 mmol/L (98-107); Estimated GFR-MDRD Greater than 90; Glucose 81 mg/dL (70-105); Potassium 3.7 mmol/L (3.5-5.1); Sodium 139 mmol/L (136-145)
[2019-04-12] MEDS ORDERED: Gabapentin 300 MG CAP ONE (06:10)
[2019-04-12] MEDS ORDERED: Acetaminophen 500 MG TAB ONE (06:10)
[2019-04-12] MEDS ORDERED: CeleCOXIB 100 MG CAP ONE (06:11)
[2019-04-12] MEDS ORDERED: Famotidine/PF 20 mg/2ml Vial ONE ×2 (06:11→07:07)
[2019-04-12] MEDS ORDERED: HYDROmorphone 0.5 MG/0.5 ML SYRINGE ONE (06:39)
[2019-04-12] MEDS ORDERED: Fentanyl 100 MCG/2 ML VIAL ONE ×2 (06:39→12:05)
[2019-04-12] MEDS ORDERED: Meperidine HCl/PF 25 MG/ML VIAL SLOW IVP PRN (08:54)
[2019-04-12] MEDS ORDERED: Promethazine HCl 25 MG/ML VIAL SLOW IVP PRN (08:54)
[2019-04-12] MEDS ORDERED: HYDROmorphone 2 MG/ML VIAL SLOW IVP PRN (08:54)
[2019-04-12] MEDS ORDERED: Bupivacaine PF 0.5% 30 ML VIAL ONE (09:38)
[2019-04-12] MEDS ORDERED: PROPOFOL 200 MG/20 ML VIAL ONE (09:41)
[2019-04-12] MEDS ORDERED: Dexamethasone 20 MG/5 ML VIAL ONE (09:41)
[2019-04-12] MEDS ORDERED: Glycopyrrolate 0.2 MG/ML 5 ML SYRINGE ONE (09:41)
[2019-04-12] MEDS ORDERED: Lidocaine 1% PF 5 ML VIAL ONE (09:41)
[2019-04-12] MEDS ORDERED: Ondansetron PF 4 MG/2 ML Vial ONE (09:41)
[2019-04-12] MEDS ORDERED: Rocuronium Bromide 10 MG/ML (10ML VIAL) ONE (09:41)
[2019-04-12] MEDS ORDERED: Simethicone Chewable 80 MG TAB PO PRN (10:32)
[2019-04-12] MEDS ORDERED: Bisacodyl 10 MG SUPP PR PRN (10:32)
[2019-04-12] MEDS ORDERED: Morphine 2 MG/ML SYRINGE SLOW IVP PRN (10:32)
[2019-04-12] MEDS ORDERED: Ondansetron PF 4 MG/2 ML Vial IVP PRN (10:32)
[2019-04-12] MEDS ORDERED: diphenhydrAMINE 25 MG CAP PO PRN (10:32)
[2019-04-12] MEDS ORDERED: Acetaminophen 325 MG TAB PO PRN (10:32)
[2019-04-12] MEDS ORDERED: HYDROcodone/Acetaminophen 5/325 mg Tablet PO PRN (10:32)
[2019-04-12] MEDS ORDERED: Promethazine HCl 25 MG/ML VIAL IM PRN (10:32)
[2019-04-12] MEDS ORDERED: Zolpidem Tartrate 5 MG TAB PO PRN (10:32)
[2019-04-12] MEDS ORDERED: ADMIXTURE FEE NERVE BLCK SCH (13:00)
[2019-04-12] MEDS ORDERED: ROPIVACAINE HCL NERVE BLCK SCH (13:00)
[2019-04-12] MEDS: Ibuprofen 800 MG TAB PO SCH ×2 (14:25→21:26)
[2019-04-12] MEDS: HYDROcodone/Acetaminophen 5/325 mg Tablet PO PRN (20:24)
[2019-04-12] MEDS: Sodium Chloride 0.9% 1,000 ML IV SCH ×2 (22:13→22:21)
[2019-04-13] MEDS: HYDROcodone/Acetaminophen 5/325 mg Tablet PO PRN ×5 (02:19→21:28)
[2019-04-13] MEDS: Sodium Chloride 0.9% 1,000 ML IV SCH (03:40)
[2019-04-13] MEDS: Ibuprofen 800 MG TAB PO SCH ×3 (06:00→22:49)
[2019-04-13 06:14] LABS: Hemoglobin 7.6 g/dL (12.0-16.0); Mean Corpuscular HGB CONC 31.1 g/dL (32.0-36.0); Mean Corpuscular Hemoglobin 24.8 pg (27.0-31.0); Mean Corpuscular Volume 79.8 fL (78.0-98.0); Mean Platelet Volume 10.3 fL (7.4-10.4); Platelet Count 192 thou/uL (130-400); RBC Distribution Width 16.8 % (11.5-14.5); Red Blood Cell (RBC) Count 3.07 mill/uL (4.20-5.40); White Blood Cell (WBC) Count 11.6 thou/uL (4.8-10.8)
[2019-04-13 06:37] LABS: Anion Gap 9 mmol/L (10-20); BUN (Urea Nitrogen) 6 mg/dL (7.0-18.7); Calc. Creatinine Clearance 171 mL/min (70-130); Calcium 7.5 mg/dL (7.8-10.44); Carbon Dioxide 20 mmol/L (22-29); Chloride 109 mmol/L (98-107); Estimated GFR-MDRD Greater than 90; Glucose 89 mg/dL (70-105); Potassium 3.3 mmol/L (3.5-5.1); Sodium 135 mmol/L (136-145)
--- NOTE | 2019-04-13 08:21 | PDOC.BPN ---
- Brief Progress Note POD#1, s/p LORETO/BS with FERNANDA and partial resection of vaginal septum. S: Pt reports feeling nauseated and having some dizziness this morning. She denies any vaginal bleeding. Duarte recently removed, not yet voiding. Reports some increased pain in RLQ today, was improved over night with on Q pump. Denies any f/c/v. Not passing flatus yet and minimal ambulation O: VSS with exception of mild tachycardia and also one temp of 100.7, others afebrile. Gen: Appears tire, NAD CV; Mild tachycardia, regular Resp: CTAB Abd: soft, mild distension, dressing c/d/i, mild-mod ttp as expected. Ext: SCDs in place, no edema, neg homans A/P Continue post op care and normal advancements. PRN oral pain meds + pain pump/anti-emetics Continue Fe for anemia, expected post op due to chronic anemia + acute EBL in surgery Repeat BMP and CBC today - determine if ca and k require replacement. Stop NS when tolerating more oral fluids
--- NOTE | 2019-04-13 11:49 | OP ---
DATE OF PROCEDURE: 04/12/2019 PREOPERATIVE DIAGNOSES: 1. Abnormal uterine bleeding. 2. Uterine fibroids. 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 4. Vaginal septum. 5. Resulting anemia. POSTOPERATIVE DIAGNOSES: 1. Abnormal uterine bleeding. 2. Uterine fibroids. 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 4. Vaginal septum. 5. Resulting anemia. PROCEDURE: Total abdominal hysterectomy with bilateral salpingectomy and partial resection of vaginal septum. BLAST FURNACE OPERATOR: Dana Woodard MD ANESTHESIA: General. COMPLICATIONS: None. EBL: Approximately 400 to 500 mL. URINE OUTPUT: 300 mL of clear urine. IV FLUIDS: 1600 mL. FINDING: Dense scar tissue from the uterus to the dome of the bladder and the right pelvic sidewall. No apparent uterine didelphys. 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 Initially, on her exam, it was thought to be a larger cervix with a cervical dimple; however, on review of the specimen, it appears to be just one cervix. Normal-appearing right fallopian tube and right ovary. A small remnant to left fallopian tube and normal left ovary. Vertical vaginal septum is approximately 3 cm in length from the introitus up to the level of the cervix. INDICATION FOR THE PROCEDURE: Ms. Chun is a 33-year-old, G3, P3, who had initially presented to me in the clinic for evaluation of abnormal uterine bleeding and resulting anemia. She had undergone a previous admission with the OB hospitalist group and found to have a prolapsing uterine fibroid. The patient underwent exam under anesthesia with a myomectomy of the prolapsing uterine fibroid, was noted to have abnormal anatomy with the vaginal septum and suspected uterine didelphys. The patient underwent abdominal and pelvic MRI with the diagnosis of uterine didelphys with the vaginal septum. The patient then underwent further medical management after discharge with continued heavy bleeding. She desired definitive surgical management due to her continued bleeding and resulting anemia. DESCRIPTION OF PROCEDURE: The patient was brought to the operating room. She was placed under general anesthesia. The patient was given Ancef for surgical prophylaxis. She was placed in dorsal lithotomy position using Solomon stirrups. She was prepped and draped in a sterile fashion. An official time-out was performed. A Pfannenstiel skin incision was made using the scalpel through her previous scar. This was carried down to the underlying fascia layer. The fascia was incised in the midline and extended bilaterally using Mnea scissors. The fascia had dense scar tissue from her previous C-sections. The superior aspect of the fascial incision was grasped using Leslie clamps, tented upward, and dissected free from the underlying rectus abdominis muscles. The same was done to the inferior aspect of the fascial incision. The rectus abdominis muscles were then bluntly. The peritoneum was entered using sharp dissection using Metzenbaum scissors. There were several adhesions along the peritoneum and rectus abdominis muscles that required meticulous dissection using both sharp and blunt dissection to allow for improved visualization. The bowel was evaluated during this time. The adhesions were primarily from the omentum to the peritoneum and rectus abdominis muscles. The uterus was adherent towards the right pelvic sidewall. Several of these adhesions were taken down using Metzenbaum scissors to allow for additional manipulation. Once the uterus was freed from the anterior pelvic right sidewall, then a double tooth tenaculum was placed on the uterus at the fundus to allow for improved manipulation. The anatomy was unable to be evaluated, did not appear to have a uterine didelphys. It is possible that the patient had a bicornuate uterus; however, it did not appear to be a didelphys. The right round ligament was then suture ligated using 0 Vicryl pop-offs. The right ligament was then divided and hemostatic with use of the Bovie. The anterior leaf of the broad ligament was then undermined and began to be developed on the right aspect. The right fallopian tube was then elevated using a [place], and a salpingectomy was performed from the distal and working proximally and then a window was created beneath the utero-ovarian ligament. Once a window was created, then the tissue was clamped with a curved Rocco. The Анна clamps have also been placed across the fallopian tube, the round ligament, and the utero-ovarian ligament. The utero-ovarian ligament was then transected and suture ligated using 0 Vicryl pop-off sutures. The posterior peritoneum on the right aspect was then undermined and transected down to the level of the uterosacral ligament. Attention was then turned anteriorly. The anterior dissection was performed inferiorly, reflecting the bladder away from the cervix. This required meticulous dissection due to her previous C-sections. Attention was then turned over to the left aspect. The left round ligament was suture ligated using 0 Vicryl and was also divided using the Bovie. The anterior leaf of the broad ligament was also undermined and the broad ligament was transected. Very small remnant of the left fallopian tube was then clamped using a Анна. This was then removed and the pedicle was suture ligated. A Анна was then placed across the round ligament, fallopian tube, and utero-ovarian ligament. The window was created in the posterior leaf of the broad ligament, and the utero-ovarian ligament was then clamped and transected, and the pedicle site was hemostatic with the use of 0 Vicryl transfixing suture. The posterior leaf of the broad ligament was then further developed down towards the level of the uterosacral ligament. The uterine vessels were skeletonized bilaterally. During the process of the adhesion takedown on the right side, there was some venous bleeding in the very, very deep aspect of the pelvis. This was evaluated and pressure was obtained to this area to control hemostasis well. The uterine vessels were then taken down and transected to allow decreased pulse pressure. The curved Rocco was then placed across the right uterine vessels. These were transected and suture ligated using 0 Vicryl suture. Then, a straight Rocco was then performed throughout the cardinal ligament on the right aspect all the way down to the level of the external cervix. This was performed sequentially and creating hemostasis. The same technique was used on the left aspect of the uterus until the level of the ectocervix was achieved. Curved Rocco's were then placed at the apices and the Mena scissors were used to incise at this level into the vagina and completely removing the cervix from the vaginal tissue. The apices were then reinforced using the Rocco stitch. The remainder of the vaginal cuff was then closed in an interrupted fashion using [id number] sutures with 0 Vicryl pop-off, creating hemostasis. The vaginal cuff appeared to be elevated in the area on the right aspect with venous bleeding had been controlled with the pressure and likely due to the decreased pulse pressures, suture ligating the uterine vasculature. The right ureter was identified. Palpation during this point was thought to be well away from the dissection plane. The pelvis was then irrigated and cleared of all clot and debris. There were no signs of bleeding or hematoma that was developing on the right aspect. All pedicle sites were hemostatic. The laparotomy sponges were then removed from the abdomen and the count was correct. The retractor was then removed from the abdomen as well. The rectus abdominis muscles were evaluated and hemostatic. There was one area on the right aspect that required [id number] suture of chromic. Otherwise, it was hemostatic. The fascia was then closed in a running fashion using 0 PDS. The subcutaneous layer was copiously irrigated and hemostatic using the Bovie. The subcutaneous layer was closed using 3-0 Vicryl. The skin was closed using merlin. Attention was then turned down to the vaginal portion. There was a linear vaginal septum that was noted from approximately the level of the introitus up to the vaginal cuff. The vaginal septum was grasped using an Allis clamp, and retractors were used to retract the anterior and posterior aspects of the vaginal canal. Due to its proximity of the bladder and the rectum, the middle aspect of the septum was resected, however, not aggressively due to the proximity. So, a partial vaginal septum resection was performed, not completely removing the septum. This was performed, and then the tissue was run in a locking fashion, was sutured to create hemostasis. The procedure was done without complication. All counts were correct x2. The patient was extubated without difficulty. Job ID: [id number]
[2019-04-13 13:02] LABS: #Basophils 0.1 thou/uL (0.0-0.2); #Lymphocytes 1.6 thou/uL (1.20-3.40); #Neutrophils 12.2 thou/uL (1.40-6.50); %Basophils 0.5 % (0.0-1.0); %Eosinophils 0.2 % (0.0-10.0); %Lymphocytes 10.9 % (21.0-51.0); %Monocytes 6.7 % (0.0-10.0); %Neutrophils 81.7 % (42.0-75.0); Mean Corpuscular Volume 81.4 fL (78.0-98.0); Mean Platelet Volume 10.2 fL (7.4-10.4); Platelet Count 204 thou/uL (130-400); RBC Distribution Width 16.7 % (11.5-14.5); Red Blood Cell (RBC) Count 3.46 mill/uL (4.20-5.40)
[2019-04-13 13:20] LABS: Anion Gap 11 mmol/L (10-20); BUN (Urea Nitrogen) 6 mg/dL (7.0-18.7); Calc. Creatinine Clearance 148 mL/min (70-130); Calcium 8.2 mg/dL (7.8-10.44); Carbon Dioxide 20 mmol/L (22-29); Chloride 108 mmol/L (98-107); Estimated GFR-MDRD Greater than 90; Glucose 102 mg/dL (70-105); Potassium 3.3 mmol/L (3.5-5.1); Sodium 136 mmol/L (136-145)
[2019-04-14] MEDS: Ibuprofen 800 MG TAB PO SCH (06:07)
[2019-04-14] MEDS: HYDROcodone/Acetaminophen 5/325 mg Tablet PO PRN ×2 (08:26→12:27)
--- NOTE | 2019-04-14 08:55 | PDOC.BPN ---
- Brief Progress Note POD#2, s/p LORETO/BS with FERNANDA and partial resection of vaginal septum. S: Pt reports feeling much better today. She has ambulated, voided, tolerated oral intake, pasisng flatus. Her only c/o slight tingling noted on anterior aspect of her right thigh that she noticed yesterday, No difficulty with moving or ambulating. No redness or pain in calf. O: VSSAF Gen: Appears tire, NAD CV; regular Resp: Unlabored Abd: soft, mild distension, On Q in place, incision c/d/i with merlin, mild- mod ttp as expected. Ext: SCDs in place, no edema, neg homans Labs: Anemia mild and stable, Hbg 9 Repeat BMP (K pending this morning) A/P Plan for d/c home today with PRN pain meds and On q pump Repeat K pending. Fe for anemia F/U 1 week staple removal/post op
[2019-04-14 10:05] LABS: Anion Gap 11 mmol/L (10-20); BUN (Urea Nitrogen) 6 mg/dL (7.0-18.7); Calc. Creatinine Clearance 174 mL/min (70-130); Calcium 8.1 mg/dL (7.8-10.44); Carbon Dioxide 22 mmol/L (22-29); Chloride 108 mmol/L (98-107); Estimated GFR-MDRD Greater than 90; Glucose 107 mg/dL (70-105); Potassium 3.2 mmol/L (3.5-5.1); Sodium 138 mmol/L (136-145)
[2019-04-14 12:00] VITALS: BP 102/66; TEMP 98.6
[2019-04-14] MEDS ORDERED: Potassium Chloride 20 MEQ TAB PO SCH (12:00)
--- NOTE | 2019-04-15 09:01 | PQF ---
ASTRID CALDERON CANDICE [id number] [facility] [id number] CLINICAL DOCUMENTATION CLARIFICATION FORM: POST DISCHARGE Addendum to original discharge summary date: ____04/14/19 Late entry note date: 04/18/19 DATE: 04/15/2019 ATTN:VERONA SOLIS Please exercise your independent, professional judgment in responding to the clarification form. Clinical indicators are provided on the bottom of this form for your review Please check appropriate box(s): [ ] Acute blood loss anemia [ x ] Post-op anemia related to acute blood loss [ ] Anemia: [ ] Aplastic [ ] Nutritional [ ] Drug induced (specify) ___ [ ] Hemolytic [ ] Hereditary [ ] Acquired [ ] Autoimmune [ ] Non-autoimmune [ ] Enzyme disorder [ x ] Chronic Anemia: [x ] Blood loss [ ] Hemolytic [ ] Simple [ ] Due to Vitamin B12 Deficiency [ ] Other [ ] Anemia of Chronic Disease (please specify) [ ] Other diagnosis [ ] Unable to determine For continuity of documentation, please document condition throughout progress notes and discharge summary. Thank You. CLINICAL INDICATORS - SIGNS / SYMPTOMS / LABS - Expected post op due to chronic anemia+ acute EBL in surgery- Brief progress note, 04/13, Verona Solis DO - Abnormal uterine bleeding- OP report, 04/12, VERONA SOLIS - Hgb: 10.7L on 04/08, 7.6L on 04/13, 9.0L on 04/13- Laboratory report - Hct: 32.3L on 04/08, 24.5L on 04/13, , 28.1L-04/13- Laboratory report - mild -mod ttp as expected-Brief progress note, 04/13, Verona Solis DO - Resulting anemia-- OP report, 04/12, VERONA SOLIS - EBL: Approx: 400 to 500ml- - OP report, 04/12, VERONA SOLIS RISK FACTORS - Uterine Fibroids-- OP report, 04/12, VERONA SOLIS - Total abnormal hysterectomy- - OP report, 04/12, VERONA SOLIS TREATMENTS: - Fe for anemia-Brief progress note, 04/13, Verona Solis DO (This form is maintained as a part of the permanent medical record) 2015 [employer]. All Rights Reserved [employer] Monica [email or web address]
--- NOTE | 2019-04-15 09:39 | DIS ---
DATE OF ADMISSION: 04/12/2019 DATE OF DISCHARGE: 04/14/2019 ADMISSION DIAGNOSES: 1. Status post a total abdominal hysterectomy with a bilateral salpingectomy and a partial vaginal septum resection for history of abnormal uterine bleeding and anemia. 2. Postoperative pain. 3. Chronic with acute anemia. DISCHARGE DIAGNOSES: 1. Status post a total abdominal hysterectomy with a bilateral salpingectomy and a partial vaginal septum resection for history of abnormal uterine bleeding and anemia. 2. Postoperative pain. 3. Chronic with acute anemia. BRIEF HOSPITAL COURSE: Ms. Ousmane Chun is a 33-year-old female, now postoperative day #2 status post a total abdominal hysterectomy and bilateral salpingectomy and a partial vaginal septum resection. She was kept postoperatively for postoperative pain control and normal postoperative advancements. The patient is meeting all requirements for discharge. Her postoperative pain is controlled with oral medications. She is voiding, ambulating, passing flatus, and tolerating oral intake. She has no vaginal bleeding. Anemia is stable as she was anemic preoperatively and is appropriate for her blood loss during surgery. She did have slight hypokalemia, which was treated with oral therapy today and will be followed up. Otherwise, her postoperative course has been benign. Followup: 7 days for staple removal and repeat potassium. ACTIVITY RESTRICTIONS: No heavy lifting, pushing, or pulling and pelvic rest x6 weeks. DIET: Regular. CODE: Full. MEDICATIONS: 1. [place] 5/325 one tablet every 6 hours as needed for pain #20, zero refills. 2. Motrin 800 mg one tablet every 8 hours p.r.n. for pain #60 with zero refills. 3. Ferrous sulfate 325 mg one tablet twice daily and continue as her home medication. Job ID: [id number] [email or web address]
== END 2019-04-14 13:15 | disposition home or self-care (01) | DRG 742 ==
LOC: EDSTATUS 03-29 16:15 → SURG A 04-12 05:50 → 3SE 04-12 14:05
PROVIDERS: ADMIT Obstetrics & Gynecology; ATTEND Obstetrics & Gynecology
PROC: 0UT90ZZ Resection of Uterus, Open Approach (ICD-10-PCS; principal; 2019-04-12)
PROC: 0UT70ZZ Resection of Bilateral Fallopian Tubes, Open Approach (ICD-10-PCS; 2019-04-12)
PROC: 0UBG0ZZ Excision of Vagina, Open Approach (ICD-10-PCS; 2019-04-12)
DX: N93.9 Abnormal uterine and vaginal bleeding, unspecified (principal); D62 Acute posthemorrhagic anemia; D25.9 Leiomyoma of uterus, unspecified; E66.9 Obesity, unspecified; N92.0 Excessive and frequent menstruation with regular cycle; E87.6 Hypokalemia; Q51.3 Bicornate uterus; Q52.10 Doubling of vagina, unspecified; Z68.38 Body mass index [BMI] 38.0-38.9, adult
CPT/HCPCS: 36415; 80048; 84703; 85027; 86850; 86900; 86901; 88305; 88307; J0690; J1100; J1170; J2001; J2270; J2405; J2704; J2795; J3010; S0020; S0028

== ENCOUNTER 2019-04-08 07:34 | Outpatient (CLI) | payer OTHER | END 2019-04-08 07:35 | disposition home or self-care (01) | LOC: LABBT 07:34 | PROVIDERS: ATTEND Obstetrics & Gynecology | DX: Z01.812 Encounter for preprocedural laboratory examination (principal); D25.9 Leiomyoma of uterus, unspecified; N92.0 Excessive and frequent menstruation with regular cycle; Q51.20 Other doubling of uterus, unspecified; Z86.2 Personal history of diseases of the blood and blood-forming organs and certain disorders involving the immune mechanism | CPT/HCPCS: 80048; 84703; 85027; 86850; 86900; 86901 ==

== ENCOUNTER 2020-11-10 12:56 | Emergency (ER) | payer OTHER ==
[2020-11-10 23:34] LABS: SARS-CoV-2 PCR by NAA DETECTED (NotDetected)
== END 2020-11-10 13:37 | disposition home or self-care (01) ==
LOC: ERS 12:56
DX: U07.1 COVID-19 (principal); H66.92 Otitis media, unspecified, left ear
CPT/HCPCS: 99283; U0003; U0005